=== PATIENT | female | born 1945 ===

== ENCOUNTER 2023-03-18 11:26 | Inpatient (IN) | payer OTHER ==
[~2023-03-18] VITALS: Ht 157.5 cm; Wt 75.3 kg
[~2023-03-18 11:26] MED LIST: GABAPENTIN100 MG PO; INTESTINEX680 MG PO; LOSARTAN-HCTZ1 EAC1 PO; POLY119PG PO; TRAM1TAB98 PO; VERAPAMIL ER120 MG PO
[2023-03-18] MEDS ORDERED: VALSARTAN-HCTZ1 EAC3 PO (12:21)
[2023-03-18 14:40] LABS: PH,URINE 5.5 (5.0-8.0); URINE APPEARANCE Clear; URINE BILIRRUBIN Negative (NEGATIVE); URINE BLOOD Negative; URINE COLOR Yellow; URINE GLUCOSE Negative (NEGATIVE); URINE LEUKOCYTE Negative; URINE NITRATE Negative; URINE PROTEIN Negative (NEGATIVE); URINE UROBILINOGEN 0.2 E.U./dl
[2023-03-18 14:41] LABS: HEMATOCRIT 38.7 % (36.0-45.00); HEMOGLOBIN 12.8 g/dL (12.0-15.00); MEAN CELL VOLUME 84.6 fL (80.00-100.00); MEAN CORPUSCULAR HEMOGLOBIN 27.9 pg (27.00-32.0); PLATELET COUNT 308 K/uL (150-450); RED BLOOD COUNT 4.57 M/uL (4.00-6.00); RED CELL DISTRIBUTION WIDTH 14.9 % (11.5-14.5)
[2023-03-18 14:44] LABS: URINE BACTERIA 1426.1 uL (0.0-1933); URINE EPITHELIAL CELLS 46.6 uL (0.0-38.8); URINE RBC 3.4 uL (0.0-20.8); URINE WBC 4.9 uL (0.0-23.2)
[2023-03-18 15:08] LABS: PROTHROMBIN TIME 10.5 SECONDS (9.0-11.5)
[2023-03-18 15:09] LABS: ALBUMIN 3.6 gm/dL (3.4-5.0); BILIRUBIN TOTAL 0.71 mg/dL (0.3-1.2); CALCIUM 9.5 mg/dL (8.5-10.1); CREATININE SERUM 0.66 mg/dL (0.55-1.02); GFR 87.07; GLOBULINA 3.5 G/DL (2.4-3.5); POTASSIUM 3.98 mEq/L (3.5-5.1); TOTAL PROTEIN 7.1 gm/dL (6.4-8.2)
[2023-03-23 14:12] LABS: HEMATOCRIT 35.6 % (36.0-45.00); HEMOGLOBIN 11.9 g/dL (12.0-15.00); MEAN CELL VOLUME 82.8 fL (80.00-100.00); MEAN CORPUSCULAR HEMOGLOBIN 27.6 pg (27.00-32.0); MEAN CORPUSCULAR HGB CONC 33.4 g/dl (32.0-36.0); PLATELET COUNT 274 K/uL (150-450); RED CELL DISTRIBUTION WIDTH 15.2 % (11.5-14.5)
[2023-03-23 14:34] LABS: ALBUMIN 3.1 gm/dL (3.4-5.0); CALCIUM 8.6 mg/dL (8.5-10.1); CREATININE SERUM 0.75 mg/dL (0.55-1.02); GFR 75.13; MAGNESIUM 1.9 mg/dL (1.8-2.4); PHOSPHOROUS 3.7 mg/dL (2.5-4.9); POTASSIUM 3.42 mEq/L (3.5-5.1)
[2023-03-24 06:48] LABS: HEMATOCRIT 33.3 % (36.0-45.00); HEMOGLOBIN 11.1 g/dL (12.0-15.00); MEAN CELL VOLUME 84.6 fL (80.00-100.00); MEAN CORPUSCULAR HEMOGLOBIN 28.3 pg (27.00-32.0); MEAN CORPUSCULAR HGB CONC 33.5 g/dl (32.0-36.0); PLATELET COUNT 244 K/uL (150-450); RED BLOOD COUNT 3.93 M/uL (4.00-6.00)
[2023-03-24 07:14] LABS: ALBUMIN 2.6 gm/dL (3.4-5.0); CREATININE SERUM 0.64 mg/dL (0.55-1.02); GFR 90.22; PHOSPHOROUS 2.2 mg/dL (2.5-4.9); POTASSIUM 3.16 mEq/L (3.5-5.1)
[2023-03-26] MEDS ORDERED: TRAM1TAB98 PO (12:14)
[2023-03-26] MEDS ORDERED: PEPCID AC20 MG PO (12:14)
== END 2023-03-26 13:45 | disposition home or self-care (01) | DRG 330 ==
LOC: EDSTATUS 12:00 → ADM 12:00 → O/R 03-23 05:30 → SURH 03-23 05:30 → SURG 03-23 07:00 → SURH 03-23 11:49 → SURG 03-23 12:00 → SURH 03-26 13:45
PROVIDERS: ADMIT Surgery; ATTEND Surgery
PROC: 0DQ84ZZ Repair Small Intestine, Percutaneous Endoscopic Approach (ICD-10-PCS; 2023-03-23)
PROC: 0DQP4ZZ Repair Rectum, Percutaneous Endoscopic Approach (ICD-10-PCS; principal; 2023-03-23 07:00)
DX: K62.3 Rectal prolapse (principal); K91.71 Accidental puncture and laceration of a digestive system organ or structure during a digestive system procedure